=== PATIENT | male | born 1975 | race Two or more races ===

== ENCOUNTER 2019-03-12 12:13 | Outpatient (CLI) | payer OTHER ==
[2019-03-13] MEDS ORDERED: COZAAR25 MG PO (13:06)
[2019-03-13] MEDS ORDERED: GLIPIZIDE ER5 MG PO (13:07)
[2019-03-13] MEDS ORDERED: MILK PO (13:08)
[2019-03-13] MEDS ORDERED: [UNRECOGNIZED DRUG - OTHER] PO (13:08)
[2019-03-13] MEDS ORDERED: METAMUCIL0.4 GM PO (13:09)
[2019-03-13] MEDS ORDERED: MAGNESIUM250 MG PO (13:09)
== END 2019-03-12 12:23 | disposition home or self-care (01) ==
LOC: EKG 12:13
DX: I10 Essential (primary) hypertension (principal); R10.9 Unspecified abdominal pain

== ENCOUNTER 2019-03-21 05:15 | Day surgery (SDC) | payer OTHER ==
[~2019-03-21 05:15] MED LIST: COZAAR25 MG PO; GLIPIZIDE ER5 MG PO; MAGNESIUM250 MG PO; METAMUCIL0.4 GM PO; MILK PO; [UNRECOGNIZED DRUG - OTHER] PO
[2019-03-21] MEDS ORDERED: TYLENOL EXTRA500 MG PO (09:23)
[2019-03-21] MEDS ORDERED: TRAMADOL HCL50 MG PO (09:23)
[2019-03-21] MEDS ORDERED: MIRALAX17 GM PO (09:23)
[2019-03-21] MEDS ORDERED: ZOFRAN4 MG PO (09:24)
== END 2019-03-21 12:20 | disposition home or self-care (01) ==
LOC: CIR.AMB 05:15
DX: K80.10 Calculus of gallbladder with chronic cholecystitis without obstruction (principal)